=== PATIENT | female | born 1990 | race Hispanic/Latino ===

== ENCOUNTER 2018-08-04 21:47 | Inpatient (IN) | payer SELFPAY ==
[2018-08-04 22:20] LABS: Urine Blood TRACE (NEG); Urine Glucose NEGATIVE (NEG); Urine Protein NEGATIVE (NEG)
[2018-08-04 22:20] LABS: Absolute Lymphocytes (CBC) 2.7 K/uL (0.7-4.9); Absolute Monocytes 0.8 K/uL (0.1-1.3); Absolute Neutrophil 1.8 K/uL (1.8-8.0); Basophils % 0.7 % (0-1.3); Eosinophils % 4.4 % (0-4.4); Lymphocytes % 48.7 % (15.3-44.8); MCV 87.4 fL (80-100); MPV 9.1 fL (7.6-11.3); RBC Red Blood Cell Count 4.35 M/uL (3.86-4.86)
[2018-08-04 22:22] LABS: Urine Bacteria <20 /HPF (<20); Urine Culture Reflex Order NOT NEEDED; Urine RBC <5 /HPF (NONE SEEN)
[2018-08-04 22:36] LABS: ALT/SGPT 52 U/L (12-78); AST/SGOT 56 U/L (15-37); Albumin 3.7 g/dL (3.4-5.0); Alkaline Phosphatase 129 U/L (45-117); BUN Blood Urea Nitrogen 14 mg/dL (7-18); Bicarbonate 28 mmol/L (21-32); Bilirubin Direct 0.2 mg/dL (0-0.2); Bilirubin Total 0.9 mg/dL (0.2-1.0); Glucose Level 107 mg/dL (74-106); Lipase 151 U/L (73-393); Potassium 3.2 mmol/L (3.5-5.1); Sodium Level 143 mmol/L (136-145); Troponin (Emerg Dept Use Only) < 0.02 ng/mL (0.0-0.045)
--- NOTE | 2018-08-04 22:57 | ER ---
Nurse's Notes [facility] Name: Emili Elizondo Age: 28 yrs Sex: Female : 1990 Arrival Date: 08/04/2018 Time: 21:50 Bed 5 Private MD: Diagnosis: Cholelithiasis;Intractable pain Presentation: 08/04 21:56 Presenting complaint: Patient states: Chest pain since Sunday with back pain radiating ao to the right side. Patient also complains of Epigastric pain. Transition of care: patient was not received from another setting of care. Onset of symptoms was July 31, 2018. Risk Assessment: Do you want to hurt yourself or someone else? Patient reports no desire to harm self or others. Initial Sepsis Screen: Does the patient meet any 2 criteria? No. Patient's initial sepsis screen is negative. Does the patient have a suspected source of infection? No. Patient's initial sepsis screen is negative. Care prior to arrival: None. 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 - Family history:: not pertinent. - Social history:: Smoking status: Patient/guardian denies using tobacco, Patient/guardian denies using alcohol, street drugs. - Ebola Screening: : Patient negative for fever greater than or equal to 101.5 degrees Fahrenheit, and additional compatible Ebola Virus Disease symptoms Patient denies exposure to infectious person Patient denies travel to an Ebola-affected area in the 21 days before illness onset. - Hospitalizations: : No recent hospitalization is reported. Screenin:04 Abuse screen: Denies threats or abuse. Denies injuries from another. Nutritional ao screening: No deficits noted. Tuberculosis screening: No symptoms or risk factors identified. Fall Risk None identified. Assessment: 22:02 Reassessment:. General: Appears in no apparent distress. uncomfortable, Behavior is ao calm, cooperative, appropriate for age. Pain: Complains of pain in chest Pain radiates to back and left arm Pain currently is 8 out of 10 on a pain scale. Pain began 2-3 days ago. Is continuous. Neuro: Level of Consciousness is awake, alert, obeys commands, Oriented to person, place, time, situation, Appropriate for age Moves all extremities. Full function Speech is normal. Cardiovascular: Capillary refill < 3 seconds Patient's skin is warm and dry. Cardiovascular: Reports chest pain, shortness of breath. Respiratory: Airway is patent Respiratory effort is even, unlabored, Respiratory pattern is regular, symmetrical. GI: Abdomen is distended, obese. : No signs and/or symptoms were reported regarding the genitourinary system. EENT: No signs and/or symptoms were reported regarding the EENT system. Derm: Skin is intact, Skin is pink, warm \T\ dry. normal, Skin temperature is warm. Musculoskeletal: Circulation, motion, and sensation intact. Range of motion:. 22:10 Reassessment: US at bedside. ak1 23:05 Reassessment: Patient appears in no apparent distress at this time. Patient and/or ao family updated on plan of care and expected duration. Pain level reassessed. Patient is alert, oriented x 3, equal unlabored respirations, skin warm/dry/pink. Patient to stay in the hospital per Dr carrera. 08/05 00:04 Reassessment: Patient appears in no apparent distress at this time. Patient and/or ao family updated on plan of care and expected duration. Pain level reassessed. Patient is alert, oriented x 3, equal unlabored respirations, skin warm/dry/pink. Waiting on admission orders. Vital Signs: 08/04 21:58 BP 117 / 82; Pulse 88; Resp 18; Temp 98.1(O); Pulse Ox 97% on R/A; Weight 81.65 kg (R); ao Height 5 ft. 2 in. (157.48 cm); Pain 5/10; 23:05 BP 112 / 78; Pulse 82; Resp 16; Pulse Ox 100% ; ao 23:59 BP 95 / 68; Pulse 76; Resp 16; Pulse Ox 100% ; Pain 0/10; ao 21:58 Body Mass Index 32.92 (81.65 kg, 157.48 cm) ao ED Course: 21:50 Patient arrived in ED. es 21:53 Pancho Carrera MD is Attending Physician. rn 21:58 Triage completed. ao 21:59 Arm band placed on right wrist. Patient placed in an exam room, in a wheelchair, on ao pulse oximetry, Patient notified of wait time. 22:05 Patient has correct armband on for positive identification. 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 Pulse ao ox on. NIBP on. 22:05 Patient maintains SpO2 saturation greater than 95% on room air. ao 22:07 EKG done, by ED staff, reviewed by Pancho Carrera MD. cc 22:07 Urine collected: clean catch specimen, cloudy. cc 22:09 Stacy Srinivasan, RN is Primary Nurse. ak1 22:09 Initial lab(s) drawn, by me, sent to lab. Inserted saline lock: 20 gauge in right ak1 antecubital area, using aseptic technique. Blood collected. 22:30 XRAY Chest Pa And Lat (2 Views) In Process Unspecified. EDMS 22:30 Ultrasound completed. Patient tolerated well. Notified FRESCO ARTIST/PA andie . sg3 22:51 US Abdomen Limited In Process Unspecified. EDMS 22:56 Garrison Kimbrough MD is Hospitalizing Provider. rn 08/05 00:15 No provider procedures requiring assistance completed. ao 00:15 Patient admitted, IV remains in place. ao Administered Medications: 08/04 23:01 Drug: Rocephin - (cefTRIAXone) 1 grams Route: IVPB; Infused Over: 30 mins; Site: right ao antecubital; 08/05 00:00 Follow up: IV Status: Completed infusion; IV Intake: 10ml ao 08/04 23:01 Drug: Flagyl 500 mg Volume: 100 ml; Route: IVPB; Rate: 200 ml/hr; Infused Over: 30 ao mins; Site: right antecubital; 08/05 02:02 Follow up: IV Status: Completed infusion; IV Intake: 100ml ao 08/04 23:01 Drug: Zofran 4 mg Route: IVP; Site: right antecubital; ao 08/05 00:00 Follow up: Response: No adverse reaction ao 02:03 Not Given (Patient Refused): morphine 4 mg IVP once ao Intake: 00:00 IV: 10ml; Total: 10ml. ao 02:02 IV: 100ml; Total: 110ml. ao Outcome: 08/04 22:56 Decision to Hospitalize by Provider. rn 08/05 00:15 Admitted to Med/surg accompanied by tech, room 224. ao Condition: stable Instructed on the need for admit. 00:22 Patient left the ED. ao Signatures: Dispatcher [employer] Filomena Mancera Roman, MD MD rn Priyanka Hayes Amber RN RN ak1 Marcus Foreman RN RN Kisha Mcfarlane 3
--- NOTE | 2018-08-04 22:58 | EDPHYS ---
Physician Documentation [facility] Name: Emili Elizondo Age: 28 yrs Sex: Female : 1990 Arrival Date: 08/04/2018 Time: 21:50 Bed 5 Private MD: ED Physician Pancho Carrera HPI: 08/04 21:55 This 28 yrs old Female presents to ER via Unassigned with complaints of Chest rn Pain, Back Pain. 21:55 The patient or guardian reports chest pain that is located primarily in the epigastric rn area, anterior chest wall, left. The pain radiates to back. Associated signs and symptoms: Pertinent positives: abdominal pain, palpitations, shortness of breath, Pertinent negatives: cough, diaphoresis, dizziness, headache, syncope, vomiting. The chest pain is described as a heaviness. Duration: The patient or guardian reports multiple episodes, that are intermittent, the episodes last approximately 5 minute(s). Modifying factors: The symptoms are alleviated by nothing. the symptoms are aggravated by breathing, deep breath, movement, palpation of area. Severity of pain: At its worst the pain was moderate in the emergency department the pain is unchanged. The patient has not experienced similar symptoms in the past. Reports 3 days of intermittent chest pain, left sided, heavy, assoc with epigastric pain and radiates to back, began 3 days ago, last approx 5 min, worse with eating/deep breath. No famhx of early cardiac problems. . 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 - Family history:: not pertinent. - Social history:: Smoking status: Patient/guardian denies using tobacco, Patient/guardian denies using alcohol, street drugs. - Ebola Screening: : Patient negative for fever greater than or equal to 101.5 degrees Fahrenheit, and additional compatible Ebola Virus Disease symptoms Patient denies exposure to infectious person Patient denies travel to an Ebola-affected area in the 21 days before illness onset. - Hospitalizations: : No recent hospitalization is reported. ROS: 21:55 Constitutional: Negative for fever, chills, and weight loss, Eyes: Negative for injury, rn pain, redness, and discharge, Cardiovascular: Negative for edema, Respiratory: Negative for cough, wheezing Abdomen/GI: + abd pain, no diarrhea Back: Negative for injury MS/Extremity: Negative for injury and deformity, Skin: Negative for injury, rash, and discoloration, Neuro: Negative for headache, weakness, numbness, tingling, and seizure. Exam: 21:55 Constitutional: This is a well developed, well nourished patient who is awake, alert, rn appears uncomfortable. Head/Face: Normocephalic, atraumatic. Eyes: Pupils equal round and reactive to light, extra-ocular motions intact. Lids and lashes normal. Conjunctiva and sclera are non-icteric and not injected. Cornea within normal limits. Periorbital areas with no swelling, redness, or edema. Cardiovascular: tachycardic regular Respiratory: mild tachypnea, clear bilaterally Abdomen/GI: soft, mild epigastric and RUQ tenderness Back: No spinal tenderness. No costovertebral tenderness. Full range of motion. Skin: Warm, dry with normal turgor. Normal color with no rashes, no lesions, and no evidence of cellulitis. MS/ Extremity: Pulses equal, no cyanosis. Neurovascular intact. Full, normal range of motion. Equal circumference. Neuro: Awake and alert, GCS 15, oriented to person, place, time, and situation. Cranial nerves II-XII grossly intact. Motor strength 5/5 in all extremities. Sensory grossly intact. Cerebellar exam normal. Vital Signs: 21:58 BP 117 / 82; Pulse 88; Resp 18; Temp 98.1(O); Pulse Ox 97% on R/A; Weight 81.65 kg (R); ao Height 5 ft. 2 in. (157.48 cm); Pain 5/10; 23:05 BP 112 / 78; Pulse 82; Resp 16; Pulse Ox 100% ; ao 23:59 BP 95 / 68; Pulse 76; Resp 16; Pulse Ox 100% ; Pain 0/10; ao 21:58 Body Mass Index 32.92 (81.65 kg, 157.48 cm) ao MDM: 21:53 Patient medically screened. rn 22:53 Differential diagnosis: cholecystitis, Cholelithiasis costochondritis, esophagitis, rn gastritis, gastroesophageal reflux disease (GERD). Data reviewed: vital signs, nurses notes, lab test result(s), radiologic studies, ultrasound, and as a result, I will admit patient. Counseling: I had a detailed discussion with the patient and/or guardian regarding: the historical points, exam findings, and any diagnostic results supporting the discharge/admit diagnosis, lab results, radiology results, the need for further work-up and treatment in the hospital. Response to treatment: the patient's symptoms have mildly improved after treatment, and as a result, I will admit patient. Admission orders: after a detailed discussion of the patient's condition and case, the admit orders are written by me. ED course: Spoke with Dr. Kimbrough, will admit, requests MRCP in AM, and likely surgery in AM for stone in fundus, persistent pain, and abnormal LFTs. NOrmal lipase. . 08/04 21:54 Order name: CBC with Diff; Complete Time: 22:49 08/04 21:54 Order name: Basic Metabolic Panel; Complete Time: 22: 08/04 21:54 Order name: Urine Microscopic Only; Complete Time: 22: 08/04 21:54 Order name: LFT's; Complete Time: 22: 08/04 21:54 Order name: Lipase; Complete Time: 22: 08/04 21:54 Order name: Troponin (emerg Dept Use Only); Complete Time: 22:49 08/04 21:54 Order name: US Abdomen Limited 08/04 21:54 Order name: XRAY Chest Pa And Lat (2 Views) 08/04 21:54 Order name: D-Dimer; Complete Time: 22: 08/04 22:13 Order name: Urine Dipstick--Ancillary (enter results); Complete Time: 22:49 [facility] 08/04 22:13 Order name: Urine --Ancillary (enter results); Complete Time: :49 [facility] 08/04 21:54 Order name: IV Start; Complete Time: 22: 08/04 21:54 Order name: Urine Test (obtain specimen); Complete Time: 22: 08/04 21:54 Order name: Urine Dipstick-Ancillary (obtain specimen); Complete Time: 22: 08/04 21:54 Order name: EKG; Complete Time: 21:55 rn 08/04 21:54 Order name: EKG - Nurse/Tech; Complete Time: 22:07 rn Administered Medications: 23:01 Drug: Rocephin - (cefTRIAXone) 1 grams Route: IVPB; Infused Over: 30 mins; Site: right ao antecubital; 08/05 00:00 Follow up: IV Status: Completed infusion; IV Intake: 10ml ao 08/04 23:01 Drug: Flagyl 500 mg Volume: 100 ml; Route: IVPB; Rate: 200 ml/hr; Infused Over: 30 ao mins; Site: right antecubital; 08/05 02:02 Follow up: IV Status: Completed infusion; IV Intake: 100ml ao 08/04 23:01 Drug: Zofran 4 mg Route: IVP; Site: right antecubital; ao 08/05 00:00 Follow up: Response: No adverse reaction ao 02:03 Not Given (Patient Refused): morphine 4 mg IVP once ao Disposition: 08/04/18 22:56 Hospitalization ordered by Garrison Kimbrough for Inpatient Admission. Preliminary diagnosis are Cholelithiasis, Intractable pain. - Bed requested for Telemetry/MedSurg (Inpatient). - Status is Inpatient Admission. ao - Condition is Stable. - Problem is new. - Symptoms have improved. UTI on Admission? No Signatures: Dispatcher [employer] EDEmmy Harris RN RN kl Nieto, Roman, MD MD rn Ortiz, Alex, RN RN ao Corrections: (The following items were deleted from the chart) 08/04 23:40 22:56 Hospitalization Ordered by Garrison Kimbrough MD for Inpatient Admission. Preliminary diagnosis is Cholelithiasis; Intractable pain. Bed requested for Telemetry/MedSurg (Inpatient). Status is Inpatient Admission. Condition is Stable. Problem is new. Symptoms have improved. UTI on Admission? No. rn 08/05 00:22 08/04 23:40 08/04/2018 22:56 Hospitalization Ordered by Garrison Kimbrough MD for Inpatient ao Admission. Preliminary diagnosis is Cholelithiasis; Intractable pain. Bed requested for Telemetry/MedSurg (Inpatient). Status is Inpatient Admission. Condition is Stable. Problem is new. Symptoms have improved. UTI on Admission? No. rory
[2018-08-04] MEDS ORDERED: ONDANSETRON 4 MG/2 ML VIAL ONE (22:59)
[2018-08-04] MEDS ORDERED: MORPHINE 4 MG/ML SYR ONE (22:59)
[2018-08-04] MEDS ORDERED: CEFTRIAXONE/SWI 1gm 1 GM/10 ML SYR ONE (22:59)
[2018-08-04] MEDS ORDERED: METRONIDAZOLE 500mg IVPB 500 MG/100 ML BAG IV ONE (22:59)
[2018-08-05] MEDS ORDERED: ACETAMINOPHEN 500 MG TAB PO PRN (00:14)
[2018-08-05] MEDS ORDERED: ONDANSETRON 4 MG/2 ML VIAL IV PRN (00:14)
[2018-08-05] MEDS ORDERED: MORPHINE 4 MG/ML SYR IV PRN (00:14)
[2018-08-05 00:23] VITALS: BMI 28.4
[2018-08-05 00:41] VITALS: O2SAT 100
[2018-08-05] MEDS: D5 0.45 NS 1,000 ML IV SCH ×2 (00:58→08:14)
[2018-08-05 04:42] LABS: Absolute Lymphocytes (CBC) 1.8 K/uL (0.7-4.9); Absolute Monocytes 0.9 K/uL (0.1-1.3); Absolute Neutrophil 3.4 K/uL (1.8-8.0); Basophils % 0.7 % (0-1.3); Eosinophils % 1.5 % (0-4.4); Hematocrit 34.9 % (36.0-45.0); Lymphocytes % 28.3 % (15.3-44.8); MCH 30.1 pg (27.0-35.0); Monocytes % 13.9 % (3.3-12.3); RBC Red Blood Cell Count 4.01 M/uL (3.86-4.86)
[2018-08-05 05:10] LABS: ALT/SGPT 63 U/L (12-78); AST/SGOT 73 U/L (15-37); Albumin 3.2 g/dL (3.4-5.0); Alkaline Phosphatase 116 U/L (45-117); BUN Blood Urea Nitrogen 11 mg/dL (7-18); Bicarbonate 27 mmol/L (21-32); Bilirubin Direct 0.2 mg/dL (0-0.2); Bilirubin Total 0.7 mg/dL (0.2-1.0); Glucose Level 106 mg/dL (74-106); Lipase 86 U/L (73-393); Potassium 3.8 mmol/L (3.5-5.1); Protein, Total 6.9 g/dL (6.4-8.2); Sodium Level 144 mmol/L (136-145)
[2018-08-05] MEDS ORDERED: METRONIDAZOLE 500mg IVPB 500 MG/100 ML BAG IV SCH (07:00)
--- NOTE | 2018-08-05 07:48 | RAD REPORT ---
EXAM DESCRIPTION: RAD - Chest Pa And Lat (2 Views) - 08/04/2018 10:32 pm CLINICAL HISTORY: Right upper quadrant pain COMPARISON: None. TECHNIQUE: PA and lateral views of the chest were obtained. FINDINGS: The lungs are clear. Heart size is normal and central vasculature is within normal limit s. No pleural effusion or pneumothorax seen. No acute bony finding noted. No aortic abnormality. IMPRESSION: No acute cardiopulmonary process.
--- NOTE | 2018-08-05 07:48 | RAD REPORT ---
EXAM DESCRIPTION: US - Abdomen Exam Limited - 08/04/2018 10:51 pm CLINICAL HISTORY: Abdominal pain Preliminary findings provided at the time of the study. COMPARISON: None. FINDINGS: Enlarged 14 millimeter gallstone is present fixed in the neck of the gallbladder. Signific ant amount of tumefactive sludge present within the lumen of the gallbladder as well. Overall gallbla dder size is normal. Wall thickening is present but minimal. No pericholecystic fluid. No common duct stone or biliary tree dilatation identified. IMPRESSION: Large 14 millimeter gallstone fixed near the neck of the gallbladder. There is significa nt tumefactive sludge as well. Borderline or mild wall thickening without pericholecystic fluid. No biliary tree abnormality.
--- NOTE | 2018-08-05 08:07 | EKG ---
Test Date: 2018-08-04 Test Time: 21:58:42 Pharmacy Billing Adjudicator: REMA MEASUREMENT RESULTS: Intervals: Rate: 77 CO: 142 QRSD: 72 QT: 374 QTc: 423 Wolsey: P: 29 CO: 142 QRS: 65 T: 59 INTERPRETIVE STATEMENTS: Normal sinus rhythm Normal ECG No previous ECG available for comparison Electronically Signed On 08-05-18 08:06:44 CDT by Dony Weiner
[2018-08-05] MEDS ORDERED: CEFTRIAXONE 1 GM/NS 50 ML 1 GM/50 ML BAG IV SCH (09:00)
--- NOTE | 2018-08-05 10:30 | RAD REPORT ---
EXAM DESCRIPTION: MRI - Cholangiogram - 08/05/2018 9:59 am CLINICAL HISTORY: Abdominal pain, epigastric pain, cholelithiasis COMPARISON: Ultrasound August 04 TECHNIQUE: MRCP imaging was performed. Axial and coronal heavily T2 weighted acquisitions were obtai brit. Coronal reconstruction static images and coronal reformatted images were generated and reviewed. Horizontal and vertical axes 3D rotational imaging using maximum intensity projection protocol also reviewed. FINDINGS: Gallbladder size is normal. Multiple intraluminal filling defects are present matching the cholelithiasis findings on ultrasound. No intrahepatic biliary tree dilatation. Common bile duct is normal at 6 mm. No true intraluminal filling defect identifiable. There is crossing vascular defect n ear the common bile duct-common hepatic duct junction. Choledocholithiasis is not suspected. IMPRESSION: No choledocholithiasis or biliary tree dilatation. Cholelithiasis and tumefactive sludge noted within normal size gallbladder.
[2018-08-05 11:54] VITALS: BP 92/56; TEMP 98.1
[2018-08-05] MEDS ORDERED: CEFTRIAXONE/SWI 1gm 1 GM/10 ML SYR IV SCH (21:00)
--- NOTE | 2018-08-05 23:00 | HP ---
Date of Admission: 08/04/2018 Diagnoses: Right upper quadrant abdominal pain, symptomatic cholelithiasis. History Of Present Illness: This is a case of a female, who came to us last night with abdominal vicky n. The patient was admitted with epigastric pain, symptomatic cholelithiasis, and acute cholecystiti s. The patient denies eating anything out of the usual, denies any family member sick at home, and d enies any recent traveling out of the country. Review of Systems: Ten points otherwise unremarkable. Allergies: NONE. Medications: None. Surgical History: Hysterectomy. Social History: She does smoke. She does drink alcohol. Family History: Unremarkable. Physical Examination: General: The patient is awake and alert. HEENT: Pupils are equal and reactive, anicteric. Neck: Supple. Chest: Clear. Heart: S1, S2. Abdomen: Soft and depressible. Mild epigastric pain. Rectal: Deferred. Breasts: Deferred. Extremities: Good capillary refill. Neuro: Cranial nerves 2 through 12 grossly within normal limits. Laboratory Data: WBC count of 5.5, hemoglobin 13, and platelets 248. Potassium 3.2, AST 56, and glu cose 57. Ultrasound shows a large 14 mm gallstone near the neck of the gallbladder with wall thicken ing consistent with acute cholecystitis. Assessment: This is a 28-year-old patient with acute cholecystitis, symptomatic cholelithiasis. MRC P was reviewed with the patient, showing no common bile duct stone. Even though she had pain last ni ght, this morning she feels a lot better with no pain at all. She wants to try diet and do this elec tively. So, we going to try a diet. If she go discharge, follow up in my office in 1 week. A low-f at diet was explained to her. We will discharge her home if she tolerates the diet with some antibio tics for the acute cholecystitis. TANK/COLUMBA Voice ID: [id number]
== END 2018-08-05 14:00 | disposition home or self-care (01) | DRG 446 ==
LOC: ER 21:47 → ERHOLD 23:03 → 2ND 08-05 00:07
PROVIDERS: ADMIT Surgery; ATTEND Surgery
DX: K80.00 Calculus of gallbladder with acute cholecystitis without obstruction (principal)
CPT/HCPCS: 36415; 71046; 74181; 76705; 80048; 80076; 81003; 81015; 81025; 83690; 84484; 85025; 85379; 93005; 96365; 96366; 96368; 96375; 99285; J0696; J2405